=== PATIENT | female | born 1955 | race African-American/Black ===

== ENCOUNTER 2016-11-21 02:14 | Emergency (ER) | payer BC ==
[~2016-11-21] VITALS: Ht 170.2 cm; Wt 72.0 kg
[~2016-11-21 02:14] MED LIST: DICL50TA3 PO; ROBA750T PO
--- NOTE | 2016-11-21 04:43 | PD ---
HPI Chief Complaint: RASH Time Seen by Provider: 04:39 Travel History International Travel<30 days: No Contact w/Intl Traveler<30days: No History of Present Illness HPI Patient comes in for evaluation pruritic rash began 6 days ago. Patient states rash began on her left upper extremity has since moved to her right upper extremity, neck, and right thigh. Patient denies any known new allergen exposures. Denies any change in soaps, lotions, detergents, perfumes, foods, pets, clothing, furniture, or other known allergen exposures. Patient states she's been taking Benadryl last dose roughly 6 hours ago with minimal to no relief of her symptoms. Patient denies any respiratory involvement, sensation of throat closing, or weight loss. Patient reports she has had a reaction to Decadron injections before, but she has took by mouth steroids without any symptoms. PFSH Past Medical History Cardiovascular Problems: Yes (htn) Diminished Hearing: No Hypertension: Yes Past Surgical History Hysterectomy: Yes (2004) Social History Alcohol Use: No Tobacco Use: No Substance Use: No Allergies-Medications (Allergen,Severity, Reaction): Coded Allergies: Dexamethasone (Verified Allergy, Severe, SOB, 09/24/16) Erythromycin (Verified Allergy, Severe, 11/14/16) ALLERGY Reported Meds & Prescriptions Reported Meds & Active Scripts Active Robaxin (Methocarbamol) 750 Mg Tab 750 Mg PO QID PRN 2 tabs QID for 2 days, then 1 tab QID thereafter Robaxin (Methocarbamol) 750 Mg Tab 1,500 Mg PO TID [address] (Diclofenac Sodium) 50 Mg Tabdr 50 Mg PO TID Review of Systems Except as stated in HPI: all other systems reviewed are Neg Physical Exam Narrative GENERAL: Well-developed, well nourished, in no acute distress, and non-ill appearing. SKIN: Warm and dry. Blanching wheals noted bilateral upper extremities and neck. HEAD: Atraumatic. Normocephalic. EYES: Pupils equal and round. EOMI. No scleral icterus. No injection or drainage. ENT: No nasal bleeding or discharge. Mucous membranes pink and moist. NECK: Trachea midline. No stridor. Supple. No nuclear rigidity. CARDIOVASCULAR: Regular rate and rhythm. No murmur appreciated. RESPIRATORY: No accessory muscle use. No respiratory distress. Clear to auscultation. Breath sounds equal bilaterally. MUSCULOSKELETAL: No obvious deformities. No clubbing. No cyanosis. No edema. Full range of motion. NEUROLOGICAL: Awake and alert. No obvious cranial nerve deficits. Motor grossly within normal limits. Normal speech. PSYCHIATRIC: Appropriate mood and affect; insight and judgment normal. Data Data Last Documented VS Vital Signs Date Time Temp Pulse Resp B/P Pulse Ox O2 Delivery O2 Flow Rate FiO2 11/21/16 04:45 98.1 91 16 156/72 97 Orders Prednisone (Deltasone) (11/21/16 04:45) Famotidine (Pepcid) (11/21/16 04:45) Diphenhydramine (Benadryl) (11/21/16 04:45) [facility] Medical Decision Making Medical Screen Exam Complete: Yes Emergency Medical Condition: Yes Differential Diagnosis Allergic reaction, nonspecific rash, urticaria, bug bites, other Narrative Course The patient presented with pruritic rash. There were no blisters or bullae, target lesions, purpura or petechia, nor vesiculobullous or scarlatiniform lesions. The patient looks great and was non-ill appearing. There is no airway involvement nor difficulty swallowing. The patient is tolerating fluids. The patient looks great, the findings are minimal and due to non-progression of symptoms here the patient is safe to discharge home. The patient feels comfortable with plan and will return immediately if symptoms begin to worsen. The rash is not consistent with erythema multiforme at this time. There was no evidence to suggest scabies, cellulitis, folliculitis or abscess, Staph. Scalded Skin Syndrome, Toxic Shock, Toxic Epidermal necrolysis, Kawasakis, Measles, Rubella, cutaneous T cell lymphoma, Erythema Multiforme (minor or major ). The patient is to continue histamine 1 and 2 blockade as well as steroids. Patient was placed on prophylactic antibiotic secondary to scratching to prevent secondary infection. The patient was instructed to avoid potential precipitating factor and to follow up with their regular physician and or follow up with business control specialist for definitive allergy testing. The patient agrees with plan. Patient in no obvious distress upon re-evaluation. Patient was asked if they wanted to speak to my attending, which the patient did not wish to do at this time. Any questions/concerns in reference to patient diagnosis/condition discussed and clarified prior to patient's discharge. Reinforced sheer importance of close follow up with patient's primary physician or primary care clinic. Instructed patient to return to ED immediately, if symptoms return/ worsen. Pt showed understanding of above instructions. Further instructions and recommendations were detailed in discharge paperwork. Pt ambulated without difficulty out of ED at discharge. Diagnosis Primary Impression: Rash and nonspecific skin eruption Patient Instructions: General Instructions Additional Instructions: Follow-up with your primary care physician in 2-3 days for reevaluation and possible allergy testing. Take all medication as prescribed. Use over-the- counter Benadryl or Claritin or Zyrtec as needed for itching. Follow instructions on the packaging. Return to the emergency department if symptoms get worse. Med/Other Pt SpecificInfo: Prescription(s) given Scripts Sulfamethoxazole-Trimethoprim (Bactrim DS)800-160 Mg Tab1 Tab PO BID #14 TAB Ref 0 Prov:Watson Lin MD 11/21/16 Famotidine (Pepcid)20 Mg Tab20 Mg PO BID 10 Days Ref 0 Prov:Watson Lin MD 11/21/16 Prednisone (21) 10 mg tab Dose Pack 10 Mg Pack10 Mg PO DIRECTED #1 DSPK Ref 0 Prov:Watson Lin MD 11/21/16 Disposition: 01 DISCHARGE HOME Condition: Stable Kevin Akhtar Nov 21, 2016 04:43
[2016-11-21 04:45] VITALS: BP 156/72; PULSE 91; RESP 16; TEMP 98.1; O2SAT 97
[2016-11-21] MEDS ORDERED: FAMOTIDINE 20 MG TAB PO ONE (04:45)
[2016-11-21] MEDS ORDERED: predniSONE 20 MG TAB PO ONE (04:45)
[2016-11-21] MEDS ORDERED: diphenhydrAMINE HCL 50 MG CAP PO ONE (04:45)
[2016-11-21] MEDS ORDERED: PRED10PA PO (06:24)
[2016-11-21] MEDS ORDERED: FAMO1TAB37 PO (06:24)
[2016-11-21] MEDS ORDERED: BACT800T5 PO (06:24)
== END 2016-11-21 06:33 | disposition home or self-care (01) ==
LOC: NEPA 02:14
DX: R21 Rash and other nonspecific skin eruption (principal)
CPT/HCPCS: 99283; J7512; Q0163

== ENCOUNTER 2018-01-15 15:27 | Emergency (ER) | payer BC ==
[~2018-01-15] VITALS: Ht 167.6 cm; Wt 70.0 kg
[~2018-01-15 15:27] MED LIST changes: +BACT800T5 PO; +FAMO1TAB37 PO; +PRED10PA PO
[2018-01-15] MEDS ORDERED: MONT10TA4 PO (15:55)
[2018-01-15] MEDS ORDERED: AMLO5TAB2 PO (15:55)
[2018-01-15] MEDS ORDERED: PREM0.45 PO (15:55)
[2018-01-15] MEDS ORDERED: OMEP20TA93 PO (15:55)
[2018-01-15] MEDS ORDERED: SODIUM CHLOR 0.9% 1000 ML INJ 1,000 ML IV SCH (15:57)
[2018-01-15] MEDS ORDERED: ONDANSETRON HCL 4 MG/2 ML VIAL IVP ONE (16:00)
[2018-01-15] MEDS ORDERED: MORPHINE SULFATE 4 MG/ML INJ IV PUSH ONE (16:00)
--- NOTE | 2018-01-15 16:08 | PD ---
HPI Chief Complaint: Abdominal Pain Time Seen by Provider: 15:49 Travel History International Travel<30 days: No Contact w/Intl Traveler<30days: No Traveled to known affect area: No History of Present Illness HPI 62yo F with PSH of hysterectomy here with c/o lower abdominal pain for 2 days. Associated with vomiting and diarrhea. Said there was some small amount of blood in diarrhea today. Denies any fever, chest pain, sob, vaginal bleeding or discharge, dysuria, hematuria, focal weakness or numbness. PFSH Past Medical History Asthma: Yes Cardiovascular Problems: Yes (htn) Diminished Hearing: No Hypertension: Yes ?: Not Past Surgical History Hysterectomy: Yes (2004) Social History Alcohol Use: No Tobacco Use: No Substance Use: No Allergies-Medications (Allergen,Severity, Reaction): Coded Allergies: dexamethasone (Unverified Allergy, Severe, SOB, 01/15/18) erythromycin base (Unverified Allergy, Severe, 01/15/18) ALLERGY Reported Meds & Prescriptions Reported Meds & Active Scripts Active Cipro (Ciprofloxacin HCl) 500 Mg Tab 500 Mg PO BID 7 Days Flagyl (Metronidazole) 500 Mg Tab 500 Mg PO QID 7 Days Reported Amlodipine (Amlodipine Besylate) 5 Mg Tab 5 Mg PO DAILY Omeprazole 20 Mg Tab 20 Mg PO DAILY Premarin (Estrogens, Conjugated) 0.45 Mg Tab 0.45 Mg PO DAILY Montelukast (Montelukast Sodium) 10 Mg Tab 10 Mg PO HS Review of Systems Except as stated in HPI: all other systems reviewed are Neg Physical Exam Narrative GENERAL: 62yo F in mild distress. SKIN: Focused skin assessment warm/dry. HEAD: Atraumatic. Normocephalic. CARDIOVASCULAR: Regular rate and rhythm. No murmur appreciated. RESPIRATORY: No accessory muscle use. Clear to auscultation. Breath sounds equal bilaterally. GASTROINTESTINAL: Abdomen soft, +TTP suprapubic, LLQ, RLQ. No rebound tenderness or guarding. MUSCULOSKELETAL: No obvious deformities. No clubbing. No cyanosis. No edema. NEUROLOGICAL: Awake and alert. No obvious cranial nerve deficits. Motor grossly within normal limits. Normal speech. PSYCHIATRIC: Appropriate mood and affect; insight and judgment normal. Data Data Last Documented VS Vital Signs Date Time Temp Pulse Resp B/P (MAP) Pulse Ox O2 Delivery O2 Flow Rate FiO2 01/15/18 18:46 96 17 154/72 (99) 98 Room Air Orders Orders Complete Blood Count With Diff (01/15/18 15:57) Comprehensive Metabolic Panel (01/15/18 15:57) Lipase (01/15/18 15:57) Ct Abd/Pel W Iv Contrast(Rout) (01/15/18 15:57) Morphine Inj (Morphine Inj) (01/15/18 16:00) Ondansetron Inj (Zofran Inj) (01/15/18 16:00) Sodium Chlor 0.9% 1000 Ml Inj (Ns 1000 M (01/15/18 15:57) Urinalysis - C+S If Indicated (01/15/18 15:58) Iohexol 350 Inj (Omnipaque 350 Inj) (01/15/18 17:20) Ciprofloxacin 400 Mg Premix (Cipro 400 M (01/15/18 18:45) Metronidazole 500 Mg Inj (Flagyl 500 Mg (01/15/18 18:45) Ed Discharge Order (01/15/18 19:23) Labs Laboratory Tests Test 01/15/18 16:02 White Blood Count 7.8 TH/MM3 Red Blood Count 4.55 MIL/MM3 Hemoglobin 13.9 GM/DL Hematocrit 40.6 % Mean Corpuscular Volume 89.3 FL Mean Corpuscular Hemoglobin 30.5 PG Mean Corpuscular Hemoglobin Concent 34.2 % Red Cell Distribution Width 14.0 % Platelet Count 206 TH/MM3 Mean Platelet Volume 10.2 FL Neutrophils (%) (Auto) 70.2 % Lymphocytes (%) (Auto) 23.0 % Monocytes (%) (Auto) 6.6 % Eosinophils (%) (Auto) 0.0 % Basophils (%) (Auto) 0.2 % Neutrophils # (Auto) 5.5 TH/MM3 Lymphocytes # (Auto) 1.8 TH/MM3 Monocytes # (Auto) 0.5 TH/MM3 Eosinophils # (Auto) 0.0 TH/MM3 Basophils # (Auto) 0.0 TH/MM3 CBC Comment DIFF FINAL Differential Comment Blood Urea Nitrogen 18 MG/DL Creatinine 1.42 MG/DL Random Glucose 108 MG/DL Total Protein 9.1 GM/DL Albumin 3.5 GM/DL Calcium Level 9.2 MG/DL Alkaline Phosphatase 66 U/L Aspartate Amino Transf (AST/SGOT) 27 U/L Alanine Aminotransferase (ALT/SGPT) 22 U/L Total Bilirubin 0.3 MG/DL Sodium Level 134 MEQ/L Potassium Level 3.2 MEQ/L Chloride Level 101 MEQ/L Carbon Dioxide Level 24.0 MEQ/L Anion Gap 9 MEQ/L Estimat Glomerular Filtration Rate 46 ML/MIN Lipase 142 U/L MDM Medical Decision Making Medical Screen Exam Complete: Yes Emergency Medical Condition: Yes Differential Diagnosis Cystitis vs. diverticulitis vs. gastroenteritis Narrative Course 62yo F with abdominal pain, vomiting, diarrhea. Labs reviewed, no leukocytosis. H/H normal. Creatinine mildly elevated at 1.42. LFTs normal. Lipase normal. Mild hypokalemia at 3.2, replaced orally. Pt given morphine and zofran. Reevaluated at bedside and nausea has resolved. Said pain is improved as well. CT a/p showed nonspecific thickening involving transverse, descending and sigmoid colon suggestive of colitis. Pt is well appearing and tolerating PO so will try outpatient follow up. Pt did not give urine yet but she has no urinary symptoms and I am covering her with cipro anyway. Diagnosis Primary Impression: Colitis Patient Instructions: General Instructions Departure Forms: Tests/Procedures Additional Instructions: Please follow up with your primary care physician in 2-3 days. Return to the ED if symptoms worsen. Med/Other Pt SpecificInfo: Prescription(s) given Scripts Metronidazole (Flagyl) 500 Mg Tab 500 MG PO TID for Infection for 7 Days, TAB 0 Refills Prov: GoodLidia 01/15/18 Ciprofloxacin (Cipro) 500 Mg Tab 500 MG PO BID for Infection for 7 Days, #14 TAB 0 Refills Prov: Lidia Good DO 01/15/18 Disposition: 01 DISCHARGE HOME Condition: Stable Lidia Godo Jan 15, 2018 16:08
[2018-01-15 16:37] LABS: AUTOMATED NEUTROPHIL # 5.5 TH/MM3 (1.8-7.7); BASOPHIL % 0.2 % (0.0-2.0); HEMATOCRIT 40.6 % (35.0-46.0); HEMOGLOBIN 13.9 GM/DL (11.6-15.3); LYMPHOCYTE # 1.8 TH/MM3 (1.0-4.8); MEAN CELL VOLUME 89.3 FL (80.0-100.0); MEAN CORPUSCULAR HEMOGLOBIN 30.5 PG (27.0-34.0); MEAN CORPUSCULAR HGB CONC 34.2 % (32.0-36.0); MEAN PLATELET VOLUME 10.2 FL (7.0-11.0); MONO % 6.6 % (0.0-8.0); MONOCYTE # 0.5 TH/MM3 (0-0.9); NEUT % 70.2 % (16.0-70.0); PLATELET COUNT 206 TH/MM3 (150-450); RED BLOOD COUNT 4.55 MIL/MM3 (4.00-5.30); WHITE BLOOD COUNT 7.8 TH/MM3 (4.0-11.0)
[2018-01-15 16:59] LABS: ALBUMIN 3.5 GM/DL (3.4-5.0); ALT (GPT) 22 U/L (10-53); AST (GOT) 27 U/L (15-37); BLOOD UREA NITROGEN 18 MG/DL (7-18); CALCIUM 9.2 MG/DL (8.5-10.1); CHLORIDE 101 MEQ/L (98-107); CREATININE 1.42 MG/DL (0.50-1.00); GLOMERULAR FILTRATION RATE 46 ML/MIN (>89); GLUCOSE,RANDOM 108 MG/DL (74-106); SODIUM (NA) 134 MEQ/L (136-145)
[2018-01-15 17:01] LABS: ALKALINE PHOSPHATASE 66 U/L (45-117); TOTAL BILIRUBIN ADULT 0.3 MG/DL (0.2-1.0); TOTAL PROTEIN 9.1 GM/DL (6.4-8.2)
[2018-01-15] MEDS ORDERED: IOHEXOL 350 MG/ML 10 ML VIAL (for RAD DIAG) IVCONTRAST ONE (17:20)
--- NOTE | 2018-01-15 17:48 | RADRPT ---
EXAM DATE/TIME: 01/15/2018 17:27 [facility] COMPARISON: No previous studies available for comparison. INDICATIONS : Lower abdominal pain for three days with nausea, vomiting and diarrhea. IV CONTRAST: 72 cc Omnipaque 350 (iohexol) IV ORAL CONTRAST: No oral contrast ingested. RADIATION DOSE: 6.72 CTDIvol (mGy) MEDICAL HISTORY : Hypertension. SURGICAL HISTORY : Hysterectomy. ENCOUNTER: Initial ACUITY: 3 days PAIN SCALE: 7/10 LOCATION: Bilateral lower quadrant TECHNIQUE: Volumetric scanning of the abdomen and pelvis was performed. Using automated exposure control and ad justment of the mA and/or kV according to patient size, radiation dose was kept as low as reasonably achievable to obtain optimal diagnostic quality images. DICOM format image data is available electro nically for review and comparison. FINDINGS: LOWER LUNGS: The visualized lower lungs are clear. LIVER: Homogeneous density without lesion. There is no dilation of the biliary tree. No calcified gallston es. SPLEEN: Normal size without lesion. PANCREAS: Within normal limits. KIDNEYS: Normal in size and shape. There is no mass, stone or hydronephrosis. ADRENAL GLANDS: Within normal limits. VASCULAR: There is no aortic aneurysm. BOWEL/MESENTERY: The bowel gas pattern is within normal limits. There is some nonspecific thickening involving the col on wall involving predominantly the transverse descending and sigmoid colon. No mechanical obstructio n is seen. No free fluid or loculated fluid collections are seen. The appendix is unremarkable. ABDOMINAL WALL: Within normal limits. RETROPERITONEUM: There is no lymphadenopathy. BLADDER: No wall thickening or mass. REPRODUCTIVE: Within normal limits. INGUINAL: There is no lymphadenopathy or hernia. MUSCULOSKELETAL: Within normal limits for patient age. CONCLUSION: 1. Nonspecific thickening involving the colon wall especially involving the transverse, descending an d sigmoid colon suggestive of colitis. 2. Otherwise, the rest examination is unremarkable for patient's age. Nabeel Vines MD on January 15, 2018 at 17:43 Board Certified Radiologist. This report was verified electronically.
[2018-01-15] MEDS ORDERED: CIPROFLOXACIN 400 MG PREMIX 200 ML IV ONE (18:45)
[2018-01-15] MEDS ORDERED: metroNIDAZOLE 500 MG INJ 100 ML IV ONE (18:45)
[2018-01-15 18:46] VITALS: BP 154/72; PULSE 96; RESP 17; O2SAT 98
[2018-01-15] MEDS ORDERED: CIPR-9 PO (19:22)
[2018-01-15] MEDS ORDERED: METR-1 PO ×2 (19:22→19:28)
[2018-01-15 21:05] VITALS: BP 142/78
== END 2018-01-15 21:10 | disposition home or self-care (01) ==
LOC: NEPE 15:27
DX: K52.9 Noninfective gastroenteritis and colitis, unspecified (principal); I10 Essential (primary) hypertension
CPT/HCPCS: 74177; 80053; 83690; 85025; 96361; 96365; 96367; 96375; 99284; J0744; J2270; J2405; J7030; Q9967